=== PATIENT | male | born 1960 | race Caucasian/White ===

== ENCOUNTER 2019-02-10 21:47 | Observation (INO) ==
--- NOTE | 2019-02-10 21:56 | Emergency Department Note ---
Disposition Clinical Impression: Chest pain Qualifiers: Chest pain type: unspecified Qualified Code(s): R07.9 - Chest pain, unspecified Disposition: Admitted As Inpatient Condition: Good Referrals: Connor Byrd Jr, MD [Primary Care Provider] - Forms: ED Satisfaction Letter Time of Disposition: 00:40 Chest Pain HPI - General Chief Complaint: ED Chest Pain Stated Complaint: CP/HIGH BP Time Seen by Provider: 02/10/19 21:54 Vital Signs Reviewed: Yes Nursing Notes Reviewed: Yes - History of Present Illness HPI Narrative: 58-year-old male presents emergency department with concern for 3 days of chest discomfort. Patient reports that it is left-sided, it does not radiate anywhere. He states that it is more of a pressure. It is worse when he laughs. Patient reports she has history of hypertension, smoking. He is also obese. Patient denies any fevers, nausea, vomiting. Reports chronic history of back pain. This is currently better than it has been in the past. - Related Data Home Medications Medication Instructions Recorded Confirmed Lisinopril 40 mg PO DAILY 12/28/17 02/11/19 [place] 10-325 mg 10 - 235 mg PO DAILY 12/28/17 02/11/19 Celecoxib 200 mg PO DAILY 02/11/19 02/11/19 Previous Rx's Medication Instructions Recorded Acyclovir [Zovirax] 800 mg PO 5XD #25 tablet 12/28/17 Allergies Allergy/AdvReac Type Severity Reaction Status Date / Time iodine Allergy Anaphylaxis Verified 12/28/17 18:29 Penicillins [PCN] Allergy Hives Verified 12/28/17 18:29 All systems ED: reviewed and negative except as stated. Review of Systems: As Per HPI Constitutional: Denies: fever Cardiovascular: Reports: chest pain. Denies: palpitations Respiratory: Denies: cough, dyspnea Gastrointestinal: Denies: abdominal pain, nausea, vomiting Musculoskeletal: Denies: back pain Chest Pain PMH - Past Medical History Medical history: Reports: hypertension - Social History Smoking Status: Current every day smoker Alcohol use: Reports: none Physical Exam - General Limitations: no limitations General appearance: alert, in no apparent distress - Head Head exam: normocephalic - Eye Eye exam: Present: EOMI - ENT ENT exam: mucous membranes moist - Neck Neck exam: Present: trachea midline - Chest Chest inspection: Present: symmetric chest wall rise - Respiratory Respiratory exam: Present: normal lung sounds bilaterally. Absent: respiratory distress, accessory muscle use - Cardiovascular Cardiovascular exam: Present: regular rate, normal rhythm, normal heart sounds - Abdominal Exam Abdominal exam: Present: soft, Non-Tender. Absent: distention, guarding, rebound, rigidity - Extremities Exam Extremities exam: Present: normal capillary refill - Back Exam Back exam: Present: full ROM - Neurological Exam Neurological exam: Present: alert, oriented X3 - Psychiatric Psychiatric exam: Present: normal affect, normal mood - Skin Skin exam: Present: warm, dry, intact, normal color. Absent: rash Course Vital Signs Temperature 97.7 F 02/10/19 21:55 Pulse Rate 80 02/10/19 21:55 Respiratory Rate 16 02/10/19 21:55 Blood Pressure 192/92 02/10/19 21:55 O2 Sat by Pulse Oximetry 97 02/10/19 21:55 Temperature 97.7 F 02/10/19 21:55 Pulse Rate 53 02/11/19 00:49 Respiratory Rate 18 02/11/19 00:49 Blood Pressure 139/79 02/11/19 00:49 O2 Sat by Pulse Oximetry 96 02/11/19 00:49 Oxygen Delivery Oxygen Delivery Room Air Chest Pain - MDM Narrative Medical decision making narrative: 58-year-old male presents emergency department with concern for chest pain. Patient was mildly hypertensive here. Reporting some chest pressure at this time. Obtaining ECG which revealed no ischemic ST changes. Chest x-ray normal. Troponin negative. Patient's chest pain improved significantly after 2 of nitroglycerin. Patient admitted to Dr. Kern, blood pressure significantly improved to 139/79 Chest X-Ray 02/10/19 21:55 IMPRESSION: No acute cardiopulmonary findings. D/ / Amber Kruger MD / Amber Kruger MD Interpreting Provider: Amber Kruger MD - Lab Data Result diagrams: 02/10/19 22:07 02/10/19 22:07 Lab Results 02/10/19 02/10/19 Range/Units 22:07 22:07 WBC 8.9 (4.3-11.1) K/mcL RBC 4.98 (4.19-5.50) M/mcL Hgb 15.1 (12.9-16.9) g/dL Hct 44.6 (37.5-50.1) % MCV 89.6 (83.0-100.0) fL MCH 30.3 (28.0-33.3) pg MCHC 33.9 (31.6-35.5) g/dL RDW 13.1 (11.5-14.5) % Plt Count 239 (140-400) K/mcL MPV 9.5 (9.4-12.4) fL Immature Gran % 0.2 (0-4) % Seg Neutrophils % 54.5 % Lymphocytes % 35.2 % Monocytes % 5.9 % Eosinophils % 3.5 % Basophils % 0.7 % Neutrophils # 4.9 (1.6-8.9) K/mcL Lymphocytes # 3.1 (0.6-4.6) K/mcL Monocytes # 0.5 (0.0-1.3) K/mcL Eosinophils # 0.3 (0.0-0.6) K/mcL Basophils # 0.1 (0.0-0.2) K/mcL Sodium 139 (136-145) mEq/L Potassium 3.7 (3.5-5.1) mEq/L Chloride 105 (98-107) mEq/L Carbon Dioxide 24 (23-29) mEq/L BUN 15 (6-20) mg/dL Creatinine 1.08 (0.70-1.30) mg/dL Est GFR ( Amer) > 60 (> 60) Est GFR (Non-Af Amer) > 60 (> 60) BUN/Creatinine Ratio 14 (6-26) Glucose 111 H (70-105) mg/dL Calculated Osmolality 290 (280-300) Calcium 9.4 (8.6-10.3) mg/dL Troponin I < 0.03 (< 0.04) ng/mL - Radiology Data Radiology results reviewed: Yes I reviewed the patient's radiology results. - EKG Data EKG attestation: Yes I reviewed and interpreted this EKG. EKG results narrative: 21:53 Ventricular rate 82 bpm, ID interval 168 ms, QRS duration 77 ms, QT 362 ms, QTC 400 ms, normal axis. Sinus rhythm with no ischemic ST changes. No changes from previous ECG. Heart Score - Score History: Moderately Suspicious EKG: Normal Age: 45-65 Risk Factors: Equal/Greater than 3 risk factor or history of atherosclerotic disease Troponin: Less than normal limit HEART Score Total: 4
[2019-02-10] MEDS ORDERED: Aspirin 81 MG TAB.CHEW PO STA (22:05)
[2019-02-10] MEDS: Nitroglycerin 0.4 MG TAB.SUBL SL PRN ×2 (22:17→22:22)
[2019-02-10 22:22] LABS: Basophils # 0.1 K/mcL (0.0-0.2); Basophils % 0.7 %; Eosinophils # 0.3 K/mcL (0.0-0.6); Eosinophils % 3.5 %; Hematocrit 44.6 % (37.5-50.1); Hemoglobin 15.1 g/dL (12.9-16.9); Immature Granulocytes % 0.2 % (0-4); Lymphocytes # 3.1 K/mcL (0.6-4.6); Lymphocytes % 35.2 %; Mean Corpuscular HGB Conc 33.9 g/dL (31.6-35.5); Mean Corpuscular Hemoglobin 30.3 pg (28.0-33.3); Mean Corpuscular Volume 89.6 fL (83.0-100.0); Mean Platelet Volume 9.5 fL (9.4-12.4); Monocytes # 0.5 K/mcL (0.0-1.3); Monocytes % 5.9 %; Neutrophils # 4.9 K/mcL (1.6-8.9); Platelet Count 239 K/mcL (140-400); Red Blood Count 4.98 M/mcL (4.19-5.50); Red Cell Distribution Width 13.1 % (11.5-14.5); Segmented Neutrophils % 54.5 %; White Blood Count 8.9 K/mcL (4.3-11.1)
[2019-02-10 23:56] LABS: BUN/Creatinine Ratio 14 (6-26); Blood Urea Nitrogen 15 mg/dL (6-20); Calcium 9.4 mg/dL (8.6-10.3); Carbon Dioxide 24 mEq/L (23-29); Chloride 105 mEq/L (98-107); Glucose 111 mg/dL (70-105); Osmolality,Calculated 290 (280-300); Potassium 3.7 mEq/L (3.5-5.1); Sodium 139 mEq/L (136-145); Troponin I < 0.03 ng/mL (< 0.04); eGFR For African Americans > 60 (> 60); eGFR For Non-African Americans > 60 (> 60)
--- NOTE | 2019-02-11 01:06 | Emergency Department Note ---
Disposition Clinical Impression: Chest pain Qualifiers: Chest pain type: unspecified Qualified Code(s): R07.9 - Chest pain, unspecified Disposition: Admitted As Inpatient Condition: Good Time of Disposition: 00:40 General Adult HPI - General Chief complaint: ED Chest Pain Stated complaint: CP/HIGH BP Time Seen by Provider: 02/10/19 21:54 Source: patient, family Limitations: no limitations Nursing Notes Reviewed: Yes Vital Signs Reviewed: Yes - History of Present Illness Pain Scale: 3 - Related Data Home Medications Medication Instructions Recorded Confirmed Lisinopril 40 mg PO DAILY 12/28/17 02/11/19 [place] 10-325 mg 10 - 235 mg PO DAILY 12/28/17 02/11/19 Celecoxib 200 mg PO DAILY 02/11/19 02/11/19 Previous Rx's Medication Instructions Recorded Acyclovir [Zovirax] 800 mg PO 5XD #25 tablet 12/28/17 Allergies Allergy/AdvReac Type Severity Reaction Status Date / Time iodine Allergy Anaphylaxis Verified 12/28/17 18:29 Penicillins [PCN] Allergy Hives Verified 12/28/17 18:29 Constitutional: Denies: fever Cardiovascular: Reports: chest pain. Denies: palpitations Respiratory: Denies: cough, dyspnea Gastrointestinal: Denies: abdominal pain, nausea, vomiting Musculoskeletal: Denies: back pain Past Medical History - Past Medical History Medical history: Reports: hypertension Psychiatric history: Reports: no psych history - Social History Smoking Status: Current every day smoker Smokeless Tobacco Status: No Alcohol use: Reports: none Physical Exam - General Limitations: no limitations General appearance: alert, in no apparent distress Course Vital Signs Temperature 97.7 F 02/10/19 21:55 Pulse Rate 80 02/10/19 21:55 Respiratory Rate 16 02/10/19 21:55 Blood Pressure 192/92 02/10/19 21:55 O2 Sat by Pulse Oximetry 97 02/10/19 21:55 Temperature 97.7 F 02/10/19 21:55 Pulse Rate 53 02/11/19 00:49 Respiratory Rate 18 02/11/19 00:49 Blood Pressure 139/79 02/11/19 00:49 O2 Sat by Pulse Oximetry 96 02/11/19 00:49 Oxygen Delivery Oxygen Delivery Room Air Medical Decision Making - Medical Records Medical records reviewed: Yes I reviewed the patient's medical records. - Lab Data Lab results reviewed: Yes I reviewed the patient's lab results. Result diagrams: 02/10/19 22:07 02/10/19 22:07 Lab Results 02/10/19 02/10/19 Range/Units 22:07 22:07 WBC 8.9 (4.3-11.1) K/mcL RBC 4.98 (4.19-5.50) M/mcL Hgb 15.1 (12.9-16.9) g/dL Hct 44.6 (37.5-50.1) % MCV 89.6 (83.0-100.0) fL MCH 30.3 (28.0-33.3) pg MCHC 33.9 (31.6-35.5) g/dL RDW 13.1 (11.5-14.5) % Plt Count 239 (140-400) K/mcL MPV 9.5 (9.4-12.4) fL Immature Gran % 0.2 (0-4) % Seg Neutrophils % 54.5 % Lymphocytes % 35.2 % Monocytes % 5.9 % Eosinophils % 3.5 % Basophils % 0.7 % Neutrophils # 4.9 (1.6-8.9) K/mcL Lymphocytes # 3.1 (0.6-4.6) K/mcL Monocytes # 0.5 (0.0-1.3) K/mcL Eosinophils # 0.3 (0.0-0.6) K/mcL Basophils # 0.1 (0.0-0.2) K/mcL Sodium 139 (136-145) mEq/L Potassium 3.7 (3.5-5.1) mEq/L Chloride 105 (98-107) mEq/L Carbon Dioxide 24 (23-29) mEq/L BUN 15 (6-20) mg/dL Creatinine 1.08 (0.70-1.30) mg/dL Est GFR ( Amer) > 60 (> 60) Est GFR (Non-Af Amer) > 60 (> 60) BUN/Creatinine Ratio 14 (6-26) Glucose 111 H (70-105) mg/dL Calculated Osmolality 290 (280-300) Calcium 9.4 (8.6-10.3) mg/dL Troponin I < 0.03 (< 0.04) ng/mL - Radiology Data Radiology results reviewed: Yes I reviewed the patient's radiology results. Chest X-Ray 02/10/19 21:55 IMPRESSION: No acute cardiopulmonary findings. D/ / Amber Kruger MD / Amber Kruger MD Interpreting Provider: Amber Kruger MD - EKG Data EKG #1 EKG attestation: Yes I reviewed and interpreted this EKG. EKG results narrative: EKG shows normal sinus rhythm with ventricular rate of 82. No significant ST segment elevation or depression. No arrhythmia or ectopy. Attestation Statement - Attestation Attestation: I, Clinton Queen MD, personally evaluated this patient and discussed their management with the resident physician. I reviewed the resident's note and agree with the documented findings, medical decision making, and plan of care. I reviewed the residents documentation and agree with the residents assessment and plan of care. I have personally had face to face time with the patient. I personally supervised and was present for the white/critical portions of the following procedures completed by the resident: EKG interpretation. 58-year-old male with prior history of hypertension presents to the emergency department with a complaint of left upper chest pain intermittently for the past 3 days. He describes the pain as a pressure. No radiation of the pain. No nausea or vomiting. No diaphoresis. He also complains of his blood pressure has been running higher than usual. He has been taking his medication as prescribed. On examination patient is a well-developed well-nourished well-appearing male in no acute distress. He is alert and oriented 3. There is no cyanosis or diaphoresis. Chest is nontender to palpation. Breath sounds are clear and equal bilaterally. Heart regular rate and rhythm. Abdomen is soft and nontender with normal bowel sounds. EKG shows normal sinus rhythm with ventricular rate of 82. No significant ST segment elevation or depression. No arrhythmia or ectopy. Chest x-ray negative. Labs reviewed and unremarkable. Troponin negative. The hospitalist, Dr. Kern, was consulted and accepted admission of the patient.
[2019-02-11] MEDS ORDERED: Naloxone 0.4 MG/ML INJ IVP PRN (05:30)
--- NOTE | 2019-02-11 05:41 | Internal Med History&Physical ---
Date of Encounter: 02/11/19 Time of Encounter: 04:45 Internal Medicine - H&P: HPI Chief complaint: Chest pain Admitted From: Home Plans for Post Hospital Care: Home History of present illness: Mr. Smith is a 58 year old male with past medical history significant for hypertension, bladder cancer in remission, chronic low back pain, and tobacco abuse who presents for complaints of waxing and waning sharp/pressure like left sided chest pain since Sunday getting progressively worse. Reports pain is rated at 8/10 when at its worst. Denies any alleviating or exacerbating factors. Denies any home treatment. Denies any pain radiation or associated symptoms. ER reported EKG as sinus rhythm with no ischemic ST changes or changes when compared with previous EKG. ER also obtained chest x-ray which showed no acute cardiopulmonary findings. Patient received nitroglycerin 2 and aspirin while in ER and reports significant improvement in his pain. Also reports having headache currently. Currently denies any numbness, tingling, shortness of breath, cough, abdominal pain, nausea, bowel or bladder changes. Follows regularly with his PCP. Reports having a echocardiogram and stress test completed several years ago which he thinks both were normal. Past Med Surg Social Fam HX - Past Medical History Medical history: cancer, hypertension, other Additional medical history: bladder cancer, chronic back pain Psychiatric history: no psych history - Past Surgical History Surgical History: cancer surgery - Social History Smoking Status: Current every day smoker Smokeless Tobacco Status: No Alcohol use: rarely Drug use: none - Family History Grandfather Hx Family Cardiac Disorders: Yes Internal Medicine - H&P: Meds Acyclovir [Zovirax] 800 mg PO 5XD #25 tablet 12/28/17 [Rx] Lisinopril 40 mg PO DAILY 12/28/17 [History] [place] 10-325 mg 10 - 235 mg PO DAILY 12/28/17 [History] Celecoxib 200 mg PO DAILY 02/11/19 [History] Allergy/AdvReac Type Severity Reaction Status Date / Time iodine Allergy Anaphylaxis Verified 12/28/17 18:29 Penicillins [PCN] Allergy Hives Verified 12/28/17 18:29 All Systems PM: A 10-system review of systems was performed and is negative for pertinent findings except as documented above in the HPI. - Constitutional Vitals: Temp Pulse Resp BP Pulse Ox 97.7 F 82 17 116/75 92 02/11/19 03:55 02/11/19 03:55 02/11/19 03:55 02/11/19 03:55 02/11/19 03:55 Exam: General: Alert and oriented. Skin:Normal color, no rash, no lesions. Cardiovascular:Normal S1 & S2, no rubs, murmurs or gallops. No JVD. Pulse regular. Lungs:Breath sounds decreased, no wheezes or crackles. Abdomen:Soft, non-tender, no rigidity. Extremities:No deformity, no edema or tenderness, no joint swelling or clubbing. Neurological:Normal cognition and motor skills. Pulses:Carotid and radial pulses normal +2. Rest of the physical exam is non contributory. Internal Med - H&P Results - Labs CBC & Chem 7: 02/11/19 05:44 02/11/19 05:44 Labs: Short CBC 02/10/19 Range/Units 22:07 WBC 8.9 (4.3-11.1) K/mcL Hgb 15.1 (12.9-16.9) g/dL Hct 44.6 (37.5-50.1) % Plt Count 239 (140-400) K/mcL Neutrophils # 4.9 (1.6-8.9) K/mcL BMP 02/10/19 22:07 Sodium 139 Potassium 3.7 Chloride 105 Carbon Dioxide 24 BUN 15 Creatinine 1.08 Glucose 111 H Calcium 9.4 Cardiac Enzymes 02/10/19 Range/Units 22:07 Troponin I < 0.03 (< 0.04) ng/mL - Impressions ITS Impressions Chest X-Ray 02/10/19 21:55 IMPRESSION: No acute cardiopulmonary findings. D/ / Amber Kruger MD / Amber Kruger MD Interpreting Provider: Amber Kruger MD - Assessment and Plan (1) Chest pain Current Visit: Yes Status: Acute Assessment and plan: Reports chest pain since Sunday waxing and waning in intensity. Improved with nitroglycerin received in ER. Continuous cardiac monitoring. Initial troponin negative, serial troponins ordered. Echocardiogram ordered. Stress test ordered. Qualifiers: Chest pain type: unspecified Qualified Code(s): R07.9 - Chest pain, un specified (2) Hypertension Current Visit: Yes Status: Chronic Assessment and plan: Continue home medications once verified. Qualifiers: Hypertension type: unspecified Qualified Code(s): I10 - Essential (primary) hypertension (3) Tobacco abuse Current Visit: Yes Status: Chronic Assessment and plan: Cessation strongly encouraged. - Time Spent With Patient Total time spent is greater than 50% in coordination of care (as documented) at patient's floor/unit and/or counseling patient:
[2019-02-11] MEDS ORDERED: *HR* Heparin 5,000 UNIT/ML VIAL SQ SCH (06:00)
[2019-02-11 06:02] LABS: Basophils # 0.1 K/mcL (0.0-0.2); Basophils % 0.7 %; Eosinophils # 0.3 K/mcL (0.0-0.6); Eosinophils % 4.8 %; Hematocrit 40.5 % (37.5-50.1); Hemoglobin 13.5 g/dL (12.9-16.9); Immature Granulocytes % 0.4 % (0-4); Lymphocytes # 2.9 K/mcL (0.6-4.6); Lymphocytes % 41.1 %; Mean Corpuscular HGB Conc 33.3 g/dL (31.6-35.5); Mean Corpuscular Hemoglobin 30.1 pg (28.0-33.3); Mean Corpuscular Volume 90.2 fL (83.0-100.0); Mean Platelet Volume 9.2 fL (9.4-12.4); Monocytes # 0.5 K/mcL (0.0-1.3); Monocytes % 6.5 %; Neutrophils # 3.2 K/mcL (1.6-8.9); Platelet Count 195 K/mcL (140-400); Red Blood Count 4.49 M/mcL (4.19-5.50); Red Cell Distribution Width 13.2 % (11.5-14.5); Segmented Neutrophils % 46.5 %; White Blood Count 6.9 K/mcL (4.3-11.1)
[2019-02-11 06:21] LABS: BUN/Creatinine Ratio 18 (6-26); Blood Urea Nitrogen 19 mg/dL (6-20); Calcium 8.9 mg/dL (8.6-10.3); Carbon Dioxide 26 mEq/L (23-29); Chloride 106 mEq/L (98-107); Glucose 125 mg/dL (70-105); Osmolality,Calculated 296 (280-300); Potassium 3.8 mEq/L (3.5-5.1); Sodium 141 mEq/L (136-145); eGFR For African Americans > 60 (> 60); eGFR For Non-African Americans > 60 (> 60)
--- NOTE | 2019-02-11 09:23 | Event Note ---
Date of Encounter: 02/11/19 Time of Encounter: 09:21
[2019-02-11] MEDS: Regadenoson 0.4 MG/5 ML SYRINGE IVP ONE ×2 (10:29→12:04)
[2019-02-11] MEDS ORDERED: Lisinopril 20 MG TABLET PO SCH (13:45)
[2019-02-11] MEDS ORDERED: NON-FORMULARY MEDICATION 1 EACH EACH (Omeprazole [Prilosec] 40 MG) PO SCH (13:45)
[2019-02-11] MEDS ORDERED: NORCO PO SCH (13:46)
[2019-02-11] MEDS ORDERED: *HR* HYDROcodone/Acet 5/325 mg TABLET PO PRN (14:01)
--- NOTE | 2019-02-11 14:30 | Discharge Summary ---
- NOTES TO OUTPATIENT PROVIDER Notes to Outpatient Provider: Patient's celecoxib has been stopped for now given his cardiac side effects and on blood pressure. Patient discharged with his other home medications. We will need outpatient pain management follow-up. Date of Encounter: 02/11/19 Time of Encounter: 14:20 - Discharge Diagnosis (1) Chest pain Priority: Primary Status: Acute Qualifiers: Chest pain type: unspecified Qualified Code(s): R07.9 - Chest pain, unspecified (2) Tobacco abuse Priority: Secondary Status: Chronic (3) Hypertension Priority: Secondary Status: Chronic Qualifiers: Hypertension type: unspecified Qualified Code(s): I10 - Essential (primary) hypertension (4) Chronic pain Priority: Secondary Status: Acute Qualifiers: Chronic pain type: due to trauma Qualified Code(s): G89.21 - Chronic pain due to trauma Hospital course: Mr. Smith is a 58 year old male with past medical history of bladder cancer, hypertension, chronic back pain after injury came in with sharp chest pain and elevated blood pressure with lightheadedness. Patient EKG was without any ischemic signs and troponins were negative. Chest x-ray was unremarkable. Patient has a negative stress test. Patient blood pressure with significant fluctuation possibly related to pain. Discussed stopping celecoxib for now given hypertension as well as he was cardiac side effects. He will need to follow with outpatient pain management. Will need follow-up for blood pressure management. We will continue current regimen for now. Discharge discussed with: patient, family, nurse - Time Spent with Patient Total time spent providing and/or coordinating discharge services: Time spent: Greater than 30 minutes (35) - Discharge Medications Prescriptions: Continued Omeprazole [PriLOSEC] 20 mg PO DAILY HYDROcodone/Acet 5/325 mg [[place] 5-325 mg] 1 tab PO Q6H PRN PRN Reason: Pain Albuterol Sulfate [Proventil Inhaler] 2 puff IH Q6HR PRN PRN Reason: Shortness Of Breath/Wheezing Lisinopril [Zestril] 40 mg PO DAILY Gabapentin [Neurontin] 300 mg PO BID Discontinued Celecoxib 200 mg PO DAILY Celecoxib [Celebrex] 200 mg PO DAILY Home Medications: Albuterol Sulfate [Proventil Inhaler] 2 puff IH Q6HR PRN 02/11/19 [History] Gabapentin [Neurontin] 300 mg PO BID 02/11/19 [History] HYDROcodone/Acet 5/325 mg [[place] 5-325 mg] 1 tab PO Q6H PRN 02/11/19 [History] Lisinopril [Zestril] 40 mg PO DAILY 02/11/19 [History] Omeprazole [PriLOSEC] 20 mg PO DAILY 02/11/19 [History] Allergies/Adverse Reactions: Allergy/AdvReac Type Severity Reaction Status Date / Time iodine Allergy Anaphylaxis Verified 12/28/17 18:29 Penicillins [PCN] Allergy Hives Verified 12/28/17 18:29 Date of admission: 02/11/19 01:06 Primary care physician: Connor Byrd Jr, MD Discharging clinician: Cedric Kruger - Constitutional Vitals: Temp Pulse Resp BP Pulse Ox 97.8 F 53 18 175/84 98 02/11/19 12:43 02/11/19 12:43 02/11/19 12:43 02/11/19 12:43 02/11/19 12:43 Exam: General: In no acute distress. obese Respiratory exam: CTAB. no accessory muscle use, rales, rhonchi, wheezes Cardiovascular exam: RRR, +S1, +S2. no murmur, gallop, rubs. GI/Abdominal exam: Non-tender, Non-distended, normal bowel sounds, soft, no peritoneal signs. Extremities exam: no pedal edema, pulses palpable in b/l lower extremities. no calf tenderness Neurological exam: CN II-XII intact, AO X3, no focal deficits. Skin exam: No skin rash - Patient Status Disposition: Home, Self-Care Condition: Good - Discharge Instructions Follow Up With: Connor Byrd Jr, MD [Primary Care Provider] - - Diet and Activity Activity: increase activity as tolerated
[2019-02-11 16:29] VITALS: BP 136/70
--- NOTE | 2019-02-11 23:35 | Electrocardiograph Report ---
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
== END 2019-02-11 16:29 | disposition home or self-care (01) ==
LOC: 2ANU 21:47 → EMEROOARM 21:47 → SUATTDRO 02-11 01:06 → 2ANU 02-11 03:48
PROVIDERS: ADMIT Pediatrics; ATTEND Internal Medicine